=== PATIENT | female | born 1990 | race Asian ===

== ENCOUNTER 2017-03-31 02:18 | Emergency (ER) | payer OTHER ==
[~2017-03-31] VITALS: Ht 167.6 cm; Wt 77.1 kg
[2017-03-31 02:20] VITALS: BP_SYST 115
[2017-03-31] MEDS ORDERED: NACL 0.9% 1,000 ML IV ONE (02:45)
[2017-03-31 03:08] LABS: BASOPHILS % (AUTO) 0.7 % (0.0-2.0); EOSINOPHILS # (AUTO) 0.1 K/uL (0.0-0.4); EOSINOPHILS % (AUTO) 0.8 % (0.0-4.0); HEMATOCRIT 27.6 % (36-48); HEMOGLOBIN 8.8 g/dL (12.0-16.0); LYMPHOCYTES # (AUTO) 1.8 K/uL (1.0-5.5); LYMPHOCYTES % (AUTO) 27.6 % (20.5-51.5); MEAN CORPUSCULAR HEMOGLOBIN 28 pg (27-31); MEAN CORPUSCULAR HGB CONC 32 % (32-36); MEAN CORPUSCULAR VOLUME 87 fL (79.0-98.0); MONOCYTES # (AUTO) 0.4 K/uL (0.0-1.0); MONOCYTES % (AUTO) 5.6 % (1.7-9.3); NEUTROPHILS # (AUTO) 4.1 K/uL (1.8-7.7); NEUTROPHILS % (AUTO) 65.3 % (40.0-70.0); PLATELET COUNT (AUTO) 352 K/uL (130-430); RED BLOOD CELL COUNT(AUTO) 3.16 MIL/uL (4.2-6.2); RED CELL DISTRIBUTION WIDTH 17.3 % (9.0-15.0); WHITE BLOOD COUNT (AUTO) 6.4 K/uL (4.8-10.8)
[2017-03-31 03:28] LABS: BILIRUBIN,URINE 1+ (NEGATIVE); BLOOD, URINE 3+ (NEGATIVE); CLARITY/URINE CLEAR (CLEAR); COLOR,URINE YELLOW (YELLOW); GLUCOSE,URINE NEGATIVE (NEGATIVE); KETONES,URINE 1+ (NEGATIVE); LEUKOCYTE ESTERASE ,URINE NEGATIVE (NEGATIVE); NITRITE, URINE NEGATIVE (NEGATIVE); PROTEIN URINE 2+ (NEGATIVE); UROBILINOGEN,URINE 0.2 (0.2-1.0)
[2017-03-31 03:36] LABS: BACTERIA,URINE MODERATE /HPF (None Seen); RBC,URINE 20-50 /HPF (0-3); WBC,URINE 0-3 /HPF (0-3)
[2017-03-31 03:40] LABS: BARBITURATE, URINE NEGATIVE (NEG <=200); BENZODIAZEPINE, URINE NEGATIVE (NEG <=150); CANNABINOID, URINE NEGATIVE (NEG <=50); COCAINE, URINE NEGATIVE (NEG <=150); METHAMPHETAMINES SCREEN,URINE POSITIVE (NEG <=500); OPIATE, URINE NEGATIVE (NEG <=100); PHENCYCLIDINE SCREEN,URINE NEGATIVE (NEG <=25); UR TRICYCLIC ANTIDEPRESSANTS NEGATIVE (NEG <=300); URINE AMPHETAMINE NEGATIVE (NEG <=500); URINE METHADONE NEGATIVE (NEG <=200); URINE OXYCODONE SCREEN NEGATIVE (NEG <=100); URINE PROPOXYPHENE SCREEN NEGATIVE (NEG <=300)
[2017-03-31 04:11] VITALS: BP_SYST 121
== END 2017-03-31 04:11 | disposition home or self-care (01) ==
LOC: SED 02:18
DX: N92.0 Excessive and frequent menstruation with regular cycle (principal); D64.9 Anemia, unspecified; F15.10 Other stimulant abuse, uncomplicated
CPT/HCPCS: 36415; 80307; 81000; 85025; 87086; 93005; 96360; 99285; J7030

== ENCOUNTER 2017-04-02 02:41 | Inpatient (IN) | payer OTHER ==
[2017-04-02] VITALS (16 sets, daily range): BP systolic 100–141
[~2017-04-02] VITALS: Ht 167.6 cm; Wt 81.2 kg
--- NOTE | 2017-04-02 03:00 | NUR ---
Pt ambulatory to bed 6 for evaluation
[2017-04-02] MEDS ORDERED: NORE5TAB3 PO (03:05)
--- NOTE | 2017-04-02 03:10 | NUR ---
ER at bedside examining patient.
--- NOTE | 2017-04-02 03:15 | NUR ---
Patient AAO x4 sitting in bed, pale, non-diaphoretic, c/o dizziness since 0100 am. Patient reports she is having a "heavy menstrual cycle", has hx of uterine fibroids, is taking Aygestin as prescribed by her OBGYN. Vital signs stable. Will continue to monitor.
--- NOTE | 2017-04-02 03:20 | NUR ---
Patient reports she has been saturating 2-3 pads per hour.
--- NOTE | 2017-04-02 03:20 | NUR ---
Patient ambulated to bathroom for urine sample.
[2017-04-02] MEDS ORDERED: NACL 0.9% 1,000 ML IV ONE (03:30)
[2017-04-02 03:59] LABS: BILIRUBIN,URINE NEGATIVE (NEGATIVE); BLOOD, URINE 3+ (NEGATIVE); CLARITY/URINE SL CLOUDY (CLEAR); COLOR,URINE RED (YELLOW); GLUCOSE,URINE NEGATIVE (NEGATIVE); KETONES,URINE NEGATIVE (NEGATIVE); LEUKOCYTE ESTERASE ,URINE NEGATIVE (NEGATIVE); NITRITE, URINE NEGATIVE (NEGATIVE); PROTEIN URINE 2+ (NEGATIVE); UROBILINOGEN,URINE 0.2 (0.2-1.0)
[2017-04-02 04:06] LABS: BACTERIA,URINE FEW /HPF (None Seen); RBC,URINE >100 /HPF (0-3); WBC,URINE 0-3 /HPF (0-3)
[2017-04-02 04:09] LABS: BARBITURATE, URINE NEGATIVE (NEG <=200); BENZODIAZEPINE, URINE NEGATIVE (NEG <=150); CANNABINOID, URINE NEGATIVE (NEG <=50); COCAINE, URINE NEGATIVE (NEG <=150); METHAMPHETAMINES SCREEN,URINE NEGATIVE (NEG <=500); OPIATE, URINE NEGATIVE (NEG <=100); PHENCYCLIDINE SCREEN,URINE NEGATIVE (NEG <=25); UR TRICYCLIC ANTIDEPRESSANTS NEGATIVE (NEG <=300); URINE AMPHETAMINE NEGATIVE (NEG <=500); URINE METHADONE NEGATIVE (NEG <=200); URINE OXYCODONE SCREEN NEGATIVE (NEG <=100); URINE PROPOXYPHENE SCREEN NEGATIVE (NEG <=300)
[2017-04-02 04:17] LABS: ANION GAP 7 (5-15); CALCIUM 7.8 mg/dL (8.4-11.0); CHLORIDE 106 mmol/L (98-107); CREATININE 0.69 mg/dL (0.55-1.30); GLUCOSE 115 mg/dL (70-99); POTASSIUM 3.2 mmol/L (3.5-5.1); RED BLOOD CELL COUNT(AUTO) 2.06 MIL/uL (4.2-6.2); SODIUM SERUM 138 mmol/L (136-145); UREA NITROGEN, BLOOD 9 mg/dL (8-21); WHITE BLOOD COUNT (AUTO) 7.9 K/uL (4.8-10.8)
[2017-04-02 04:18] LABS: HEMATOCRIT 18.3 % (36-48); HEMOGLOBIN 5.7 g/dL (12.0-16.0)
[2017-04-02 04:19] LABS: BASOPHILS # (AUTO) 0.1 K/uL (0.0-0.2); BASOPHILS % (AUTO) 1.3 % (0.0-2.0); EOSINOPHILS # (AUTO) 0.1 K/uL (0.0-0.4); EOSINOPHILS % (AUTO) 0.7 % (0.0-4.0); LYMPHOCYTES # (AUTO) 2.2 K/uL (1.0-5.5); MEAN CORPUSCULAR HEMOGLOBIN 28 pg (27-31); MEAN CORPUSCULAR HGB CONC 31 % (32-36); MEAN CORPUSCULAR VOLUME 89 fL (79.0-98.0); MONOCYTES # (AUTO) 0.7 K/uL (0.0-1.0); MONOCYTES % (AUTO) 8.4 % (1.7-9.3); NEUTROPHILS # (AUTO) 4.8 K/uL (1.8-7.7); NEUTROPHILS % (AUTO) 61.6 % (40.0-70.0); PLATELET COUNT (AUTO) 310 K/uL (130-430)
[2017-04-02 04:20] LABS: GFR AFRICAN AMERICAN 134 mL/min (>90)
--- NOTE | 2017-04-02 04:20 | NUR ---
Patient resting quietly. No acute distress noted. Vital signs within normal range.
[2017-04-02 04:26] LABS: ALANINE AMINOTRANSFERASE 15 U/L (12-78); ALBUMIN 2.8 g/dL (3.4-4.8); ASPARTATE AMINOTRANSFERASE 16 U/L (10-37)
[2017-04-02 04:51] LABS: TOTAL BILIRUBIN 0.1 mg/dL (0.0-1.0)
[2017-04-02] MEDS ORDERED: POTASSIUM CHLORIDE 20 MEQ TAB.PRT.SR PO ONE (05:00)
[2017-04-02 05:05] LABS: PROTHROMBIN TIME 10.3 SECS (9.5-12.5)
--- NOTE | 2017-04-02 05:24 | NUR ---
Patient to be admitted to ICU. On hold at this time waiting for bed placement.
--- NOTE | 2017-04-02 05:55 | NUR ---
Patient will be admitted to care of Dr. Arellano. Admitted to ICU unit. Will go to room 2. Belongings list completed. Summary report printed. Report will be given at bedside.
--- NOTE | 2017-04-02 06:05 | NUR ---
ADMISSION NOTE Received patient from ER via gurney. Patient admitted with diagnosis of Severe anemia. PMH: Uterine Fibroids. Patient is awake, alert, oriented X 4. Patient oriented to hospital room, call light, toileting, pain management and safety-teach back done. Patient informed that Katheryn will be nurse and that their room number is 2. Personal belongings checked and Belongings List documented. Call light within reach.
--- NOTE | 2017-04-02 06:31 | NUR ---
Consult Called for Santy Tellez MD Reason for consultation: Severe Anemia Person who was notified:Lizbeth Barth by Dr. Arellano
--- NOTE | 2017-04-02 07:28 | NUR ---
RECEIVED REPORT FROM CONRADO MURPHY. PT AAOX4, ABLE TO VERBALIZE NEEDS. VSS, SINUS RHYTHM ON MONITOR. PT LYING DOWN IN BED, DENIES DIZZINESS/PAIN AT THIS TIME. 02 SAT 99% ON ROOM AIR. 20G LAC IV WITH 1 UNIT PRBC INFUSING. BED LOCKED AND IN LOWEST POSITION, CALL LIGHT IN REACH. WILL CONTINUE TO MONITOR. Addendum: 04/02/17 at 0807 by Emely Lazo RN PT STATES THAT WHEN SHE GOT UP TO USE THE RESTROOM AT 0700, SHE WAS STILL HAVING MODERATE VAGINAL BLEEDING.
--- NOTE | 2017-04-02 08:22 | NUR ---
SPOKE TO DR DUGAN REGARDING PT, AWARE OF PT'S H&H AND PT RECEIVING 2 UNITS PRBC. RECEIVED ORDERS FOR PELVIC ULTRASOUND.
--- NOTE | 2017-04-02 08:35 | NUR ---
BT INITIATION: Consent signed per PT agreeing to administration of blood. Blood has been type and crossmatched. Blood sent from blood bank. Information on unit of blood checked against patient wristband at bedside by two nurses. All information matches. Patient or responsible constitution party informed of potential complications associated with blood transfusion. Informed of possible transfusion reaction symptoms. Aware of need to notify nurse at once of itching, shortness of breath, flushing, feeling of impending doom, or other symptoms not previously present. Vital signs taken within 5 minutes prior to initiation of transfusion. RN will remain with patient for first 15 minutes of transfusion at which time vital signs will be re-assessed.
--- NOTE | 2017-04-02 10:09 | NUR ---
ROUNDS DR ROSENTHAL HERE TO EVALUATE PT. AWARE PT IS CURRENTLY RECEIVING 2ND UNIT PRBC. DOES NOT WANT REPEAT H&H TODAY, STATES WE WILL WAIT FOR RESULT WITH TOMORROW AM LABS.
[2017-04-02 12:30] LABS: TOTAL IRON BIND. CAPACITY 293 ug/dL (250-450)
--- NOTE | 2017-04-02 13:25 | NUR ---
PELVIC ULTRASOUND BEING DONE AT BEDSIDE.
--- NOTE | 2017-04-02 14:14 | NUR ---
SPOKE TO DR ROSENTHAL ON PHONE REGARDING PT NOT CONSENTING TO TRANSVAG ULTRASOUND. RECEIVED ORDERS TO TRANSFER PT TO [facility].
--- NOTE | 2017-04-02 15:15 | NUR ---
MD ROUNDS DR HOWARD-MARCIO HERE TO EVALUATE PT. MD STATES PT STABLE TO TRANSFER OUT OF ICU. MD TO ORDER AYGESTIN 5MG.
[2017-04-02] MEDS: NORETHIDRONE 5 MG PO SCH (17:39)
--- NOTE | 2017-04-02 18:33 | NUR ---
PT TRANSFERRED TO MED SURG ROOM 116B BY WHEELCHAIR. ALL PERSONAL BELONGINGS SENT WITH PT. NO SIGNS DISTRESS NOTED. REPORT GIVEN TO JAMES MURPHY.
--- NOTE | 2017-04-02 18:35 | NUR ---
Transfer to [facility] Pt AAOx4, ambulatory, states no pain or distress. IV SL 20G on left FA intact, patent, no infiltration noted. Situated pt to room and call light. Bed locked in lowest position. Call light in reach. Will endorse plan of care to shift production supervisor RN.
--- NOTE | 2017-04-02 19:30 | NUR ---
OPENING NOTE PT RECEIVED FROM PREVIOUS RN. PT IN BED AWAKE, ALERT. NO SIGNS OF DISTRESS, NO COMPLAINTS OF PAIN OR DISCOMFORT. FAMILY IS AT BEDSIDE. CARE TO RESUME THROUGH SHIFT.
--- NOTE | 2017-04-02 22:00 | NUR ---
RN ROUNDS PT IN BED, AWAKE, ALERT. NO SIGNS OF DISTRESS, NO COMPLAINT OF PAIN OR DISCOMFORT. WILL CONTINUE TO OBSERVE.
--- NOTE | 2017-04-03 00:04 | NUR ---
RN ROUNDS PT IN BED, RESTING. NO SIGNS OF DISTRESS, NO APPARENT PAIN OR DISCOMFORT. WILL CONTINUE TO OBSERVE
[2017-04-03 00:13] VITALS: BP_SYST 143
[2017-04-03 00:18] VITALS: BP_SYST 115
--- NOTE | 2017-04-03 04:08 | NUR ---
Patient in bed asleep. Audible breath sounds heard. No appearance of pain or respiratory distress noted. Call light within reach. Will monitor on rounds for any change of condition.
[2017-04-03 06:47] LABS: BASOPHILS % (AUTO) 0.4 % (0.0-2.0); EOSINOPHILS # (AUTO) 0.1 K/uL (0.0-0.4); EOSINOPHILS % (AUTO) 1.6 % (0.0-4.0); HEMATOCRIT 22.9 % (36-48); HEMOGLOBIN 7.3 g/dL (12.0-16.0); LYMPHOCYTES # (AUTO) 2.1 K/uL (1.0-5.5); LYMPHOCYTES % (AUTO) 30.9 % (20.5-51.5); MEAN CORPUSCULAR HEMOGLOBIN 28 pg (27-31); MEAN CORPUSCULAR HGB CONC 32 % (32-36); MEAN CORPUSCULAR VOLUME 89 fL (79.0-98.0); MONOCYTES # (AUTO) 0.6 K/uL (0.0-1.0); MONOCYTES % (AUTO) 8.8 % (1.7-9.3); NEUTROPHILS # (AUTO) 3.9 K/uL (1.8-7.7); NEUTROPHILS % (AUTO) 58.3 % (40.0-70.0); PLATELET COUNT (AUTO) 277 K/uL (130-430); RED BLOOD CELL COUNT(AUTO) 2.58 MIL/uL (4.2-6.2); RED CELL DISTRIBUTION WIDTH 18.7 % (9.0-15.0); WHITE BLOOD COUNT (AUTO) 6.7 K/uL (4.8-10.8)
--- NOTE | 2017-04-03 06:57 | NUR ---
Closing Notes Patient in bed resting. No pain or respiratory distress noted. All needs have been met during the night and safety precautions in place. Will endorse to the day shift nurse.
[2017-04-03 07:01] LABS: ALBUMIN 2.7 g/dL (3.4-4.8); CALCIUM 8.2 mg/dL (8.4-11.0); CREATININE 0.58 mg/dL (0.55-1.30); POTASSIUM 3.7 mmol/L (3.5-5.1); TOTAL BILIRUBIN 0.1 mg/dL (0.0-1.0)
--- NOTE | 2017-04-03 07:52 | NUR ---
OPENING NOTE: MORNING REPORT WAS TAKEN FROM CHIMNEY SWEEPER NURSE. PATIENT WAS ASLEEP WITH NO SIGNS OF DISTRESS. VITALS WERE TAKEN. MORNING ASSESSMENT WAS DONE. PATIENT'S IV IS SALINE LOCKED. PATIENT IS NOT COMPLAINING OF SHORTNESS OF BREATH OR PAIN. PATIENT STATED SHE ISNT BLEED THAT MUCH FROM HER VAGINA. PATIENT EDUCATED ON IMPORTANCE OF BED ALARM. PATIENT REFUSED BED ALARM BECAUSE SHE GETS UP TO USE RESTROOM. BED IS IN LOWEST POSITION WITH CALL LIGHT IN REACH. PATIENT HAS NO FURTHER REQUESTS AT MOMENT. WILL CONTINUE TO MONITOR.
[2017-04-03 08:00] VITALS: BP_SYST 112
[2017-04-03 08:19] LABS: RETICULOCYTE COUNT 7.2 % (0.5-1.5)
[2017-04-03] MEDS: NORETHIDRONE 5 MG PO SCH (09:46)
--- NOTE | 2017-04-03 09:48 | NUR ---
NOTE: PATIENT WAS ASLEEP WITH NO SIGNS OF DISTRESS. COULDN'T FIND PATIENTS HOME MEDICATION. WASN'T IN [place]. CALLED PHARMACY AND THEY DIDN'T HAVE IT. FOUND IN ICU AND GAVE MEDICATION TO PATIENT. WILL CONTINUE TO MONITOR.
--- NOTE | 2017-04-03 11:21 | NUR ---
NOTE: PATIENT'S PARENTS ARE AT BEDSIDE WONDERING WHEN PATIENT CAN GO HOME. LET FAMILY KNOW WE HAVE TO WAIT FOR DOCTOR TO COME AND ASSESS PATIENT AND GIVE HER MEDICATIONS NEEDED. FAMILY UNDERSTANDS AND WILL WAIT FOR DOCTOR. PATIENT IS COMFORTABLY ASLEEP IN BED WITH NO SIGNS OF DISTRESS.
[2017-04-03] MEDS ORDERED: IRON DEXTRAN COMPLEX 500 MG in NS 500 ML IV ONE (12:15)
[2017-04-03] MEDS ORDERED: IRON DEXTRAN COMPLEX 25 MG in NS 50 ML IV ONE (12:15)
[2017-04-03 12:17] VITALS: BP_SYST 113
[2017-04-03] MEDS ORDERED: SOD FERRIC GLUC COMPLEX/SUC 125 MG in NS 100 ML IV SCH (12:30)
--- NOTE | 2017-04-03 13:04 | NUR ---
: CALLED DOCTOR ANITA BUCKLEY TO FOLLOW UP WITH DISCHARGE FROM DOCTOR ROSENTHAL. DR. HOWARD OKAYED FOR PATIENT TO BE DISCHARGED.
[2017-04-03 13:10] VITALS: BP_SYST 113
[2017-04-03] MEDS ORDERED: FERR-57 PO ×2 (13:53→13:56)
[2017-04-03] MEDS ORDERED: MULT PO (13:56)
[2017-04-03] MEDS ORDERED: VITD2000 PO (13:56)
--- NOTE | 2017-04-03 14:41 | NUR ---
DISCHARGE NOTE: PATIENT IS AWAKE IN BED WITH NO SIGNS OF DISTRESS. IV FLUID WAS ADMINISTERED. PATIENT IS NOT COMPLAINING OF PAIN. PATENT IS NOT COMPLAINING OF SHORTNESS OF BREATH OR DIZZINESS. PATIENT GIVEN DISCHARGE PAPERWORK AND AN EXTRA COPY FOR MOTHER PER PATIENT REQUEST. PATIENT HAS NO QUESTIONS. PATIENT GIVEN HOME MEDICATION IN [facility] PRESCRIPTION OF NEW MEDICATIONS FROM DR ROSENTHAL. IV WAS TAKEN OUT AND WRIST BAND WAS CUT. PATIENT IS GETTING DRESSED. PATIENT ASKED IF SHE COULD WALK TO FRONT BUT LET HER KNOW WE CAN WHEEL HER OUT IF SHE WANTS.
== END 2017-04-03 14:45 | disposition home or self-care (01) | DRG 760 ==
LOC: SED 02:41 → SMU 05:02 → SIC 05:55 → SMU 18:28
PROVIDERS: ADMIT Internal Medicine; ATTEND Internal Medicine
PROC: 30233N1 Transfusion of Nonautologous Red Blood Cells into Peripheral Vein, Percutaneous Approach (ICD-10-PCS; principal; 2017-04-02)
DX: N92.1 Excessive and frequent menstruation with irregular cycle (principal); D62 Acute posthemorrhagic anemia; E44.1 Mild protein-calorie malnutrition; N80.0 Endometriosis of uterus; N93.9 Abnormal uterine and vaginal bleeding, unspecified; Z68.28 Body mass index [BMI] 28.0-28.9, adult
CPT/HCPCS: 36415; 76856-TC; 80053; 80307; 81000-TC; 81025; 83540-TC; 83550-TC; 84484; 84703; 85025; 85044-TC; 85610-TC; 85730-TC; 86886; 86900; 86901; 86920; 87081; 93005; 96360; 99285; J1750; J2916; J7030; J7050; P9021